=== PATIENT | male | born 1965 | race Caucasian/White ===

== ENCOUNTER → 2018-12-04 | Outpatient (REF) | payer MEDICARE ==
[2018-12-04 13:33] LABS: APPEARANCE, URINE CLEAR (CLEAR); BACTERIA, URINE AUTO NEGATIVE (NEGATIVE); BILIRUBIN, URINE AUTO NEGATIVE (NEGATIVE); BLOOD, URINE BLOOD 2+ (NEGATIVE); COLOR, URINE YELLOW (YELLOW); GLUCOSE, URINE (UA) AUTO NEGATIVE (NEGATIVE); KETONE, URINE AUTO NEGATIVE (NEGATIVE); LEUKOCYTE ESTERASE, URINE AUTO NEGATIVE (NEGATIVE); NITRITE, URINE AUTO NEGATIVE (NEGATIVE); PROTEIN, URINE AUTO NEGATIVE (NEGATIVE); RBC, URINE AUTO 14 /HPF (0-3); SPECIFIC GRAVITY URINE AUTO 1.016 (1.002-1.035); SQUAMOUS EPITHELIAL CELL UR AU 0 /HPF (0-6); UROBILINOGEN, URINE AUTO 0.2 mg/dL (0.0-2.0); WBC, URINE AUTO 0 /HPF (0-3)
[2018-12-04 14:10] LABS: ALBUMIN 3.4 GM/DL (3.2-5.2); BILIRUBIN,TOTAL 0.5 MG/DL (0.2-1.0); CALCIUM LEVEL 8.6 MG/DL (8.5-10.1); CREATININE FOR GFR 1.94 MG/DL (0.70-1.30); PHOSPHORUS LEVEL 3.2 MG/DL (2.5-4.9); POTASSIUM SERUM 4.7 MEQ/L (3.5-5.1); TOTAL PROTEIN 7.4 GM/DL (6.4-8.2)
[2018-12-04 14:16] LABS: TOTAL 25(OH) VITAMIN D 28.8 NG/ML (30.0-100.0)
[2018-12-04 14:17] LABS: FOLATE 15.1 NG/ML
[2018-12-07 00:07] LABS: % CD8 Pos Lymph 21.3 % (12.0-35.5); %CD4 Pos Lymphs 23.2 % (30.8-58.5); ABS Eosinophils 0.2 x10E3/uL (0.0-0.4); ABS Lymphs 0.8 x10E3/uL (0.7-3.1); ABS Monocytes 0.7 x10E3/uL (0.1-0.9); Abs CD4 Helper 186 /uL (359-1519); Abs CD8 Suppres 170 /uL (109-897); CD4/CD8 Ratio 1.09 (0.92-3.72); Eosinophils 2 % (Not Estab.); HCT 45.2 % (37.5-51.0); HEPATITIS A IgG TOTAL Positive (Negative); HEPATITIS B CORE ANTIBODY IGG Negative (Negative); HGB 15.3 g/dL (13.0-17.7); HIV-1 RNA PCR QUANT 2 LC550285 20 copies/mL (.); HIV-1 RNA PCR QUANT 3 LC550285 1.301 (.); Immature Grans 0 % (Not Estab.); Lymphocytes 11 % (Not Estab.); MCH 33.3 pg (26.6-33.0); MCHC 33.8 g/dL (31.5-35.7); MCV 98 fL (79-97); Monocytes 10 % (Not Estab.); Neutrophils 76 % (Not Estab.); Platelets 191 x10E3/uL (150-450); RDW 15.3 % (12.3-15.4); WBC 6.7 x10E3/uL (3.4-10.8)
== END ==
LOC: M SFHCPLAZ 11:08
PROVIDERS: ATTEND Internal Medicine Infectious Disease
DX: B20 Human immunodeficiency virus [HIV] disease (principal); E55.9 Vitamin D deficiency, unspecified; N18.3 Chronic kidney disease, stage 3 (moderate); Z23 Encounter for immunization
CPT/HCPCS: 36415; 80053; 81001; 82306; 82607; 82746; 84100; 86360; 86704; 86708; 87536; 90682; G0008; G0463

== ENCOUNTER → 2019-01-01 | Outpatient (CLI) | payer MEDICARE, OTHER ==
[~2019-01-01] MED LIST: B-1210009 PO; BUPR300T34 PO; BUSP10TA PO; GABA800T4; LISI-542 PO; QUET1TAB7 PO; SODI650T PO; STIO1AER PO; TRIU1TAB PO; VITA500045 PO
--- NOTE | 2019-01-02 08:36 | RADONC ---
RADIATION ONCOLOGY CONSULTATION NOTE DATE: 01/01/2019 CHART NUMBER: [id number] DIAGNOSIS: Anal cancer. STAGE: II A, T2N0M0. ECOG PERFORMANCE STATUS: 2 CONSULTATION NOTE: Mr. Vásquez is a truly pleasant and unfortunate 53-year-old white male with the diagnosis of what appears to be a stage II A, T2N0M0 anorectal squamous cell carcinoma, who is presenting to us today status post definitive external beam radiation therapy combined with chemotherapy for further followup visit and surveillance. HISTORY OF PRESENT ILLNESS: The patient was in his usual state of health until early May when he was found to have an anal lesion. A biopsy was done on 06/09/2017 and pathology revealed a squamous cell carcinoma. The tumor was staged as a stage II A, cT2, N0, M0 lesion. A PET scan was done on 07/12/2017 and confirmed no evidence of metastatic disease. The patient was treated with external beam radiation therapy for a dose of 5040 cGy delivered in 28 fractions over 37 elapsed days from 08/14/2017 through 09/21/2017. He had difficulty with tolerance of his treatment but overall has done well. The patient reports that he did have a post treatment PET scan in November 2017, which is reported to be negative and done at an outside institution. He reports that he has had pulmonary issues with pulmonary hypertension as well as kidney issues and cardiology issues and all this has been followed in [place]. I do not have all the reports at the present time. He is now presenting for discussion in routine followup of his anal cancer. PAST MEDICAL HISTORY: The patient's past medical history is positive for a diagnosis of HIV in 1992. He developed AIDS in 2011. He has now moved closer to be near his sister who lives in [facility]. In addition, the patient has a history of stage III chronic kidney disease, pulmonary fibrosis, chronic respiratory failure and hypoxia, depressive disorder, vitamin B12 deficiency, polyneuropathy, and sleep apnea. He has had shingles on multiple occasions and has had HPV virus and multiple skin cancers. SOCIAL HISTORY: The patient had smoked one pack of cigarettes per day for 25 years. He quit in 2010. He does not abuse alcohol. ALLERGIES: The patient has NO KNOWN DRUG ALLERGIES. FAMILY HISTORY: The patient's family history is positive for maternal grandfather with a brain tumor and a maternal grandmother with pancreatic cancer. REVIEW OF SYSTEMS: The patient's review of systems is positive for shortness of breath requiring nasal oxygen. He has physical limitations secondary to his oxygen dependency as well as depression and anxiety. He denies nausea, vomiting, fevers, chills, night sweats, diplopia, headaches, visual disturbances, weight loss, bowel difficulties, bone pain or neurological problems. PHYSICAL EXAMINATION: The patient is a well-developed, well-nourished white male, in no acute distress, who is on nasal oxygen. HEENT: Exam is normocephalic, atraumatic. Extraocular movements are intact. There is no palpable cervical, supraclavicular, infraclavicular, axillary or inguinal lymphadenopathy present. His lungs are clear to auscultation and percussion. His heart has a regular rate and rhythm. His abdomen is benign with no splenomegaly, masses or tenderness. Rectal examination reveals a normal anal sphincter tone. The perianal region shows no evidence of nodularity, ulceration or recurrent disease. The anal canal and rectal examination reveals no evidence of nodularity or ulceration. All is within normal limits. There are no significant skin changes secondary to radiation. Skeletal examination reveals no tenderness to percussion of the bony skeleton. Extremities: Reveal no cyanosis or edema. ASSESSMENT: At this time, the patient appears to be clinically RYLEE with his anal carcinoma. I have printed out a copy of the national comprehensive cancer network guidelines for surveillance of anal carcinoma, version 2.2019. It calls for those patients in complete remission following radiation and chemotherapy to undergo digital rectal examinations every 3-6 months for 5 years. In addition, inguinal node palpation should be done every 3-6 months for 5 years as well. On top of that anoscopy every 6-12 months for 3 years should be done and they have recommended scanning either with CT of the chest, abdomen and pelvis or an MRI annually for 3 years. In this case, the patient has been followed with pretreatment and post-treatment PET scans and for the sake of thoroughness and consistency I have ordered a PET scan to be undertaken instead of CAT scans. As noted above, I have scheduled the patient to see me again in 3 months. We will continue to follow him every 3 months and do routine digital and inguinal node examinations. I have also scheduled the patient for a PET CT scan. I was going to do this month but due to insurance purposes the patient asked if it would be possible to delay that scan until February. At this point, I do not see any difficulty with waiting another 6 weeks or so to do the PET CT scan, and I have introduced him to our nurse navigator to set that up. Once again, this will mean he will have his PET scan in the mid to early February and be seen by me the first week of March for followup. In addition, we are setting the patient up to be referred to Dr. Wiggins for routine anoscopy evaluation. The patient reports that he is being set up with our lpc for further evaluation and workup of his lung issues. He also is being set up for referral to a coloring room worker for his pulmonary hypertension and a wildlife control operator. He will continue of course is very close care with his infectious disease physician Dr. Domínguez. I reassured him of course that he is in excellent hands under her service. I am in the process of transitioning towards long-term at this time and will not be here on a full-time basis. I have however told the patient I will be sure to have his visit scheduled with me personally and I think that reassured him. Thank you once again for allowing us to participate in the care of this very pleasant gentleman. If I could be of any assistance, please feel free to contact me at anytime. As always with the warmest regards.
== END ==
LOC: M ONCR 08:37
PROVIDERS: ATTEND Radiology Radiation Oncology
DX: C21.0 Malignant neoplasm of anus, unspecified (principal); B20 Human immunodeficiency virus [HIV] disease; N18.3 Chronic kidney disease, stage 3 (moderate); J84.10 Pulmonary fibrosis, unspecified; J96.11 Chronic respiratory failure with hypoxia; F33.9 Major depressive disorder, recurrent, unspecified; D51.9 Vitamin B12 deficiency anemia, unspecified; G62.9 Polyneuropathy, unspecified; G47.30 Sleep apnea, unspecified; Z86.19 Personal history of other infectious and parasitic diseases; Z85.828 Personal history of other malignant neoplasm of skin; Z87.891 Personal history of nicotine dependence; Z80.9 Family history of malignant neoplasm, unspecified; Z80.0 Family history of malignant neoplasm of digestive organs

== ENCOUNTER → 2019-03-07 | Outpatient (REF) | payer MEDICARE ==
[~2019-03-07] MED LIST changes: -BUPR300T34 PO; +BUPR300T92 PO
[2019-03-07 14:22] LABS: ALBUMIN 3.8 GM/DL (3.2-5.2); BILIRUBIN,TOTAL 0.7 MG/DL (0.2-1.0); CALCIUM LEVEL 8.9 MG/DL (8.5-10.1); CREATININE FOR GFR 2.11 MG/DL (0.70-1.30); GLOMERULAR FILTRATION RATE 35.4 (>56); POTASSIUM SERUM 4.8 MEQ/L (3.5-5.1)
[2019-03-07 14:29] LABS: TOTAL 25(OH) VITAMIN D 26.5 NG/ML (30.0-100.0)
[2019-03-07 15:16] LABS: FOLATE 12.6 NG/ML
[2019-03-12 00:07] LABS: % CD8 Pos Lymph 20.7 % (12.0-35.5); %CD4 Pos Lymphs 20.9 % (30.8-58.5); ABS Eosinophils 0.1 x10E3/uL (0.0-0.4); ABS Monocytes 0.9 x10E3/uL (0.1-0.9); ABS Neutophils 5.8 x10E3/uL (1.4-7.0); Abs CD4 Helper 209 /uL (359-1519); Abs CD8 Suppres 207 /uL (109-897); CD4/CD8 Ratio 1.01 (0.92-3.72); Eosinophils 1 % (Not Estab.); HCT 46.7 % (37.5-51.0); HGB 16.4 g/dL (13.0-17.7); HIV-1 RNA PCR QUANT 2 LC550285 <20 copies/mL (.); Immature Grans 0 % (Not Estab.); Lymphocytes 13 % (Not Estab.); MCH 34.5 pg (26.6-33.0); MCHC 35.1 g/dL (31.5-35.7); MCV 98 fL (79-97); Monocytes 11 % (Not Estab.); Neutrophils 74 % (Not Estab.); Platelets 242 x10E3/uL (150-450); RBC 4.75 x10E6/uL (4.14-5.80); RDW 15.6 % (11.6-15.4); WBC 7.8 x10E3/uL (3.4-10.8)
== END ==
LOC: M SFHCPLAZ 11:33
PROVIDERS: ATTEND Internal Medicine Infectious Disease
DX: B20 Human immunodeficiency virus [HIV] disease (principal); G63 Polyneuropathy in diseases classified elsewhere; C21.0 Malignant neoplasm of anus, unspecified; E55.9 Vitamin D deficiency, unspecified
CPT/HCPCS: 36415; 80053; 82306; 82378; 82607; 82746; 86360; 87536; G0463

== ENCOUNTER → 2019-03-13 | Outpatient (CLI) | payer MEDICARE ==
--- NOTE | 2019-03-13 13:44 | REP ---
CHEST X-RAY: TWO VIEWS. HISTORY: Pulmonary fibrosis. Comparison is made with images from PET-CT study dated November 23, 2017. FINDINGS: There is a subtle infiltrate pattern in the right upper lobe and the right upper perihilar region. Some increased markings are noted in the right perihilar region on chest CT. Some of this may be chronic. Lung carroll are otherwise clear. Pleural angles are sharp. Heart is not enlarged. Pulmonary vasculature is not increased. No significant bony abnormality. IMPRESSION: Right upper lobe infiltrate pattern. Question chronic. It is difficult to compare with the prior CT findings. Followup is suggested. Electronically Signed by Minh Arango MD 03/13/2019 07:04 P
== END ==
LOC: M RAD 12:51
PROVIDERS: ATTEND Nurse Practitioner Family
DX: J84.10 Pulmonary fibrosis, unspecified (principal)

== ENCOUNTER → 2019-03-19 | Outpatient (CLI) | payer MEDICARE ==
--- NOTE | 2019-03-20 15:38 | REP ---
Whole body PET CT scan for restaging of anal carcinoma: Comparison is an outside study dated 11/23/2017. On the comparison study there were no hypermetabolic foci in the rectosigmoid colon or anus. Whole-body scanning is performed from skull base to the upper thighs. Neck and supraclavicular areas: There are no hypermetabolic foci. This is unchanged. Chest: There are no hypermetabolic foci. This is unchanged. Abdomen, pelvis and upper thighs: There is a hypermetabolic focus in the distal rectosigmoid colon above the anus measuring approximate 2 cm in diameter with a maximal standard uptake value of 6.6 as a change from the prior study. There is a hypermetabolic focus in the anus measuring 1.1 cm diameter with a maximal standard uptake value of 5.8, also a change from the prior study. Additionally, there is uptake along the medial margins of the ischii bilaterally, not present previously. This is nonspecific but may be related to tendinopathy. There are no hypermetabolic foci in the abdomen, pelvis or upper thighs otherwise. Impression: There are two new hypermetabolic foci, one in the distal rectosigmoid colon above the anus and the other in the anus as discussed in the body of the report. Additionally, there is uptake along the medial margins of the ischii of uncertain significance, possibly tendinopathy. The study is performed with 8.14 mCi of F 18 FDG. Electronically Signed by Ian Dickey MD 03/20/2019 03:30 P
== END ==
LOC: M PLARAD 10:45
PROVIDERS: ATTEND Radiology Radiation Oncology
DX: R93.3 Abnormal findings on diagnostic imaging of other parts of digestive tract (principal); C21.0 Malignant neoplasm of anus, unspecified
CPT/HCPCS: 78815; A9552

== ENCOUNTER → 2019-03-25 | Outpatient (CLI) | payer MEDICARE ==
--- NOTE | 2019-03-26 16:25 | SLEEPCENT ---
DATE OF PROCEDURE: 03/25/2019 ORDERED BY: DANYELLE Dobson Nocturnal polysomnography was performed for the titration of pressure therapy in this patient with a clinical diagnosis of obstructive sleep apnea syndrome supported by home testing revealing respiratory event index 16.5. For testing a ResMed AirFit F20 full-face mask of medium size was used; 4 cm of water pressure were initially applied to the circuit and the lights were extinguished. 7 hours and 36 minutes of data were reviewed. There were 344.5 minutes of sleep identified. Sleep latency was prolonged at 41 minutes. Rapid eye movement (REM) latency was mildly prolonged at 115.5 minutes. Sleep architecture was good with 3 REM cycles noted. Overall sleep efficiency 76.6%. The patient's electrocardiogram showed a sinus rhythm, average heart rate 85 beats per minute. Electroencephalogram (EEG) showed fairly normal waveforms for awake and sleep stages. Respiratory events were reasonably palliated with CPAP at a pressure of 12. Further increases prompted the emergence of central apneas. There were some mild hypopneic events but no significant oxygen desaturations with them. Some activity was also noted in the limb leads but limb movement arousal index was 5.2. IMPRESSION: Obstructive sleep apnea syndrome (G47.33). RECOMMENDATIONS: Nightly use of pressure therapy 12 cm of water.
== END ==
LOC: M SLEEP 19:08
PROVIDERS: ATTEND Nurse Practitioner Family
DX: G47.33 Obstructive sleep apnea (adult) (pediatric) (principal)

== ENCOUNTER → 2019-03-27 | Outpatient (CLI) | payer MEDICARE, OTHER ==
--- NOTE | 2019-03-27 14:28 | RADONC ---
RADIATION ONCOLOGY FOLLOWUP NOTE DATE: 03/27/2019 CHART #: [id number] DIAGNOSIS: Anal cancer. STAGE: II A, T2N0M0. ECOG PERFORMANCE STATUS: 2. FOLLOWUP NOTE: Mr. Vásquez is a pleasant 53-year-old white male with the diagnosis of what appears to be a stage II A, T2N0M0, anorectal squamous cell carcinoma who is presenting to us today for a followup visit status post definitive external beam radiation therapy combined with chemotherapy at an outside institution in 2018. The patient presents today reporting that he is doing well with regards to his anal cancer. He has multiple other medical illnesses; however, which are being managed by other physicians. REVIEW OF SYSTEMS: The patient's review of systems continues to be positive for physical limitations as well as shortness of breath requiring nasal oxygen. He has weakness. He denies nausea, vomiting, fevers, chills, night sweats, headaches anal pain, blood in the stools, or blood in the urine. PHYSICAL EXAMINATION: The patient is a chronically ill-appearing white male who is presenting on nasal oxygen. HEENT Exam: Normocephalic, atraumatic. Extraocular movements are intact. There is no palpable cervical, supraclavicular, infraclavicular, axillary or inguinal lymphadenopathy present. His lungs are generally clear to auscultation and percussion. His heart has a regular rate and rhythm. Rectal examination reveals no evidence of nodularity, ulceration or recurrent disease. The patient is clinically doing quite well at this point. Since his past visit, he has had a PET scan done on 03/19/2019 which showed some hypermetabolic uptake in the perianal muscles which is symmetrical. There was also some uptake along the anal wall. The patient, however, has been seen by Dr. Whitmore of [facility] and undergone anoscopy. He saw some scarring secondary to the radiation, but no evidence of disease. He is continuing his close followup with Dr. Whitmore every 3 months. In addition, he is following up with his other physicians as well. In light of his close followup and management through his other physicians, I have discharged him from my followup except on a p.r.n. basis. At this point, almost 2 years following radiation, his primary followup should be through his colorectal physician which is doing every three months and colonoscopies as indicated. cc: MD Ning Shaw Bem, MD Leno Thomas, MD
== END ==
LOC: M ONCR 10:33
PROVIDERS: ATTEND Radiology Radiation Oncology
DX: C21.0 Malignant neoplasm of anus, unspecified (principal)

== ENCOUNTER → 2019-09-02 | Outpatient (CLI) | payer MEDICARE, OTHER ==
[~2019-09-02] MED LIST changes: +SERO50TA PO
[2019-09-02 12:40] LABS: ALBUMIN 3.5 GM/DL (3.2-5.2); BILIRUBIN,TOTAL 0.4 MG/DL (0.2-1.0); CALCIUM LEVEL 8.3 MG/DL (8.5-10.1); CREATININE FOR GFR 1.96 MG/DL (0.70-1.30); GLOMERULAR FILTRATION RATE 38.6 (>56); POTASSIUM SERUM 4.8 MEQ/L (3.5-5.1); TOTAL PROTEIN 7.4 GM/DL (6.4-8.2)
[2019-09-05 18:09] LABS: % CD8 Pos Lymph 21.5 % (12.0-35.5); %CD4 Pos Lymphs 24.5 % (30.8-58.5); ABS Basophils 0.1 x10E3/uL (0.0-0.2); ABS Eosinophils 0.1 x10E3/uL (0.0-0.4); ABS Monocytes 0.7 x10E3/uL (0.1-0.9); ABS Neutophils 4.9 x10E3/uL (1.4-7.0); Abs CD4 Helper 245 /uL (359-1519); Abs CD8 Suppres 215 /uL (109-897); CD4/CD8 Ratio 1.14 (0.92-3.72); Eosinophils 2 % (Not Estab.); HCT 47.1 % (37.5-51.0); HGB 15.9 g/dL (13.0-17.7); HIV-1 RNA PCR QUANT 2 LC550285 <20 copies/mL (.); Immature Grans 0 % (Not Estab.); Lymphocytes 15 % (Not Estab.); MCH 33.6 pg (26.6-33.0); MCHC 33.8 g/dL (31.5-35.7); MCV 100 fL (79-97); Monocytes 11 % (Not Estab.); Neutrophils 71 % (Not Estab.); Platelets 219 x10E3/uL (150-450); RBC 4.73 x10E6/uL (4.14-5.80); RDW 14.4 % (11.6-15.4); WBC 6.8 x10E3/uL (3.4-10.8)
== END ==
LOC: M PLALAB 10:15
PROVIDERS: ATTEND Internal Medicine Infectious Disease
DX: B20 Human immunodeficiency virus [HIV] disease (principal)

== ENCOUNTER → 2019-12-10 | Outpatient (CLI) | payer MEDICARE, OTHER ==
--- NOTE | 2019-12-12 12:34 | ECHO ---
DATE OF PROCEDURE: 12/10/2019 Age: 54 Gender: Male Height: 70 inches Weight: 280 pounds Body surface area: 2.4 m2 PATIENT LOCATION: Outpatient. REFERRING PHYSICIAN: Nnig Domínguez MD. INDICATION: Respiratory failure. MEASUREMENTS: 2D Measurements: RV 4.0 cm LV 3.7 cm Septum 1.2 cm Posterior wall 1.2 cm Aortic Root 3.7 cm LA 4.0 cm LVEF 75% Doppler Measurements: AV 1.0 m/s LVOT 0.95 m/s MV-E 68, A 89, E/A ratio 0.8 Early mitral deceleration time 161 m/s E prime medial 6, A prime medial 12.9, E prime lateral 7.6 Average E/E prime ratio 10/PCWP 14.3 mmHg PV 0.7 m/s Pulmonary artery acceleration time 90 m/s PASP 42 mmHg COMMENTS: Sinus tachycardia with left bundle branch block. Technically difficult study in light of the patients body habitus, but diagnostically useful information was still obtained. M-mode and two-dimensional echocardiography was performed with pulse, continuous wave, color flow, and tissue Doppler studies. Borderline concentric left ventricular hypertrophy with hyperkinetic wall motion. Borderline left atrial enlargement with grade 1 left ventricular (LV) diastolic dysfunction with current estimated mean left atrial pressure upper limits of normal. Borderline dilated right heart chambers with normal wall motion and Doppler evidence of at least moderate pulmonary hypertension. We could not visualize his inferior vena cava to further estimate his central venous pressure. Normal aortic dimensions. Normal appearing aortic valve and aortic valve function. Mild degenerative changes of the mitral valvular apparatus without apparent functional abnormality. Normal appearing tricuspid valve with mild insufficiency. We could not visualize any intracardiac mass. No pericardial effusion. MTDD
== END ==
LOC: M CARPUL 10:14
PROVIDERS: ATTEND Internal Medicine Infectious Disease
DX: J96.11 Chronic respiratory failure with hypoxia (principal); I44.7 Left bundle-branch block, unspecified

== ENCOUNTER → 2019-12-18 | Outpatient (REF) | payer MEDICARE ==
[2019-12-18 14:10] LABS: CREATININE FOR GFR 1.94 MG/DL (0.70-1.30); GLOMERULAR FILTRATION RATE 38.9 (>56)
[2019-12-18 14:11] LABS: CALCIUM LEVEL 9.7 MG/DL (8.5-10.1)
[2019-12-18 14:19] LABS: HEMOGLOBIN A1c 7.1 %
== END ==
LOC: M SFHCPLAZ 10:09
PROVIDERS: ATTEND Internal Medicine Infectious Disease
DX: R73.9 Hyperglycemia, unspecified (principal)

== ENCOUNTER → 2020-05-06 | Outpatient (CLI) | payer MEDICARE ==
[~2020-05-06] MED LIST changes: +GASTROGRAFIN SOLUTION 30ML (Q9963) As Ordered ONE; -LISI-542 PO; +LISI-898 PO; -QUET1TAB7 PO; +QUET25TA3 PO
--- NOTE | 2020-05-06 13:55 | REP ---
INDICATION: ANAL CA SURVEILLENCE. COMPARISON: None. TECHNIQUE: CT of the chest without IV contrast. FINDINGS: There are no lung nodules or masses. There are no infiltrates or pleural effusions. There are focal areas of subpleural scarring. There is no mediastinal or axillary lymph node enlargement. The study is insensitive for hilar lymph node enlargement in the absence of IV contrast. However, there appear to be calcifications in the left hilus, likely granulomas. The unenhanced thoracic aorta is unremarkable. Cardiac size is normal. There is no pericardial effusion. Upper abdomen: I suspect there are calculi in the gallbladder neck. There is no gallbladder distention, wall thickening or pericholecystic fluid. The visualized areas of the unenhanced liver, pancreas and spleen are unremarkable except for hepato steatosis.. There is no adrenal mass. IMPRESSION: There are no lung masses or nodules. There are no infiltrates or pleural effusions. There are focal areas of subpleural scarring. Cholelithiasis without evidence of acute cholecystitis. Hepato steatosis. <Electronically signed by Ian Dickey > 05/06/20 [id number]
--- NOTE | 2020-05-06 14:24 | REP ---
INDICATION: ANAL CA SURVEILLENCE. Status post chemotherapy and radiation therapy. COMPARISON: Comparison PET-CT study 19 March 2019.. TECHNIQUE: Helical scanning is acquired and 3 mm axial images re-formatted. Coronal and sagittal MPR images are generated. FINDINGS: Preliminary digital fabrication machine operator radiograph shows an unremarkable bowel gas pattern. There is mild to moderate diffuse fatty infiltration of the liver. The liver is not felt to be enlarged overall. The spleen is normal in size homogeneous in texture. No hepatic or splenic mass lesion is seen. There is a peripherally calcified gallstone in the neck of the gallbladder. No abnormality is noted in the pancreas. Normal adrenal glands are seen bilaterally. There is no evidence of retroperitoneal adenopathy or mass lesion. The kidneys are morphologically intact. Small and large bowel loops are normal in the upper abdomen. Pelvic CT images show dystrophic calcifications in the prostate. Seminal vesicles and urinary bladder are unremarkable. No perineal or perirectal mass or adenopathy is appreciated. Small and large bowel loops are normal in the pelvis. No abdominal wall defect is seen. Bone window settings show bilateral pars defects at L5 without spondylolisthesis. No bony destructive lesion is seen. IMPRESSION: No mass or adenopathy noted. Fatty infiltration of the liver. Cholelithiasis. <Electronically signed by Reynaldo Arango > 05/06/20 [id number]
== END ==
LOC: M RAD 11:03
PROVIDERS: ATTEND Internal Medicine Medical Oncology
DX: C21.0 Malignant neoplasm of anus, unspecified (principal); K76.0 Fatty (change of) liver, not elsewhere classified; K80.20 Calculus of gallbladder without cholecystitis without obstruction
CPT/HCPCS: 71250; 74176; Q9963

== ENCOUNTER → 2020-05-10 | Outpatient (CLI) | payer MEDICARE ==
[~2020-05-10] MED LIST changes: +D31000TA2 PO; -GASTROGRAFIN SOLUTION 30ML (Q9963) As Ordered ONE; +QUET50TA3
== END ==
LOC: M LABSMTC 09:09
PROVIDERS: ATTEND Anesthesiology
DX: Z01.818 Encounter for other preprocedural examination (principal); Z11.52 Encounter for screening for COVID-19

== ENCOUNTER 2020-05-15 06:45 | Day surgery (SDC) | payer MEDICARE ==
[~2020-05-15] VITALS: Ht 180.3 cm; Wt 123.8 kg
[~2020-05-15 06:45] MED LIST changes: +NS 1,000 ML IV ONE
[2020-05-15] MEDS ORDERED: LIDOCAINE 2% 100MG/5ML SDV (FOR ANES.) As Ordered ONE (07:03)
[2020-05-15] MEDS ORDERED: propofoL 200 MG/20 ML VIAL As Ordered ONE (07:03)
--- NOTE | 2020-05-15 08:11 | ROOR ---
Patient Name: Ramón Vásquez Procedure Date: 05/15/2020 7:28 AM Date of : 1965 Age: 54 Room: [facility] Gender: Male Note Status: Finalized Procedure: Colonoscopy Indications: Abnormal PET scan of the GI tract Providers: Cesario WIGGINS MD Referring MD: Ning CUMMINGS MD., Lakshmi AUGUSTIN MD Requesting Provider: Medicines: Monitored Anesthesia Care Complications: No immediate complications. Procedure: Pre-Anesthesia Assessment: - The heart rate, respiratory rate, oxygen saturations, blood pressure, adequacy of pulmonary ventilation, and response to care were monitored throughout the procedure. The Colonoscope was introduced through the anus and advanced to 10 cm into the ileum. The colonoscopy was performed without difficulty. The patient tolerated the procedure well. The quality of the bowel preparation was good. Findings: The perianal and digital rectal examinations were normal. The perianal and digital examinations were normal. Pertinent negatives include normal sphincter tone and no palpable rectal lesions. Mild mucosal changes characterized by altered vascularity and congestion (edema) were found at the anus, in the rectum and in the recto-sigmoid colon. Biopsies were taken with a cold forceps for histology. A 5 mm polyp was found in the splenic flexure. The polyp was sessile. The polyp was removed with a cold snare. Resection and retrieval were complete. Retroflexion in the right colon was performed. The exam was otherwise normal throughout the examined colon. The terminal ileum appeared normal. 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 In view of PET scan results this area was randomly biopsied. - One 5 mm polyp at the splenic flexure, removed with a cold snare. Resected and retrieved. - The rest of the colon and examined portion of the ileum are normal. Recommendation: - Await pathology results. - Use fiber, for example Citrucel, Fibercon, Konsyl or Metamucil. - Repeat proctoscopy/flex sig in 1 year to assess disease activity. Procedure Code(s): --- Professional --- 18833, Colonoscopy, flexible; with removal of tumor(s), polyp(s), or other lesion(s) by snare technique 90246, 59, Colonoscopy, flexible; with biopsy, single or multiple Diagnosis Code(s): --- Professional --- R93.3, Abnormal findings on diagnostic imaging of other parts of digestive tract K63.5, Polyp of colon K62.7, Radiation proctitis K52.0, Gastroenteritis and colitis due to radiation CPT copyright 2019 [employer] [place] [employer]. All rights reserved. The codes documented in this report are preliminary and upon pigskin trimmer review may be revised to meet current compliance requirements. Cesario Wiggins MD Cesario WIGGINS MD 05/15/2020 8:11:07 AM Electronically signed by Cesario WIGGINS MD Number of Addenda: 0 Note Initiated On: 05/15/2020 7:28 AM Estimated Blood Loss: Estimated blood loss: none.
[2020-05-15 08:25] VITALS: BP 105/60
== END 2020-05-15 12:16 | disposition home or self-care (01) ==
LOC: M OPP 06:45
PROVIDERS: ATTEND Internal Medicine Gastroenterology
DX: K52.0 Gastroenteritis and colitis due to radiation (principal); K62.3 Rectal prolapse; K62.1 Rectal polyp; D12.5 Benign neoplasm of sigmoid colon; D12.3 Benign neoplasm of transverse colon; R93.3 Abnormal findings on diagnostic imaging of other parts of digestive tract; J84.10 Pulmonary fibrosis, unspecified; Z79.899 Other long term (current) drug therapy; Z85.048 Personal history of other malignant neoplasm of rectum, rectosigmoid junction, and anus; Z92.21 Personal history of antineoplastic chemotherapy; Z92.3 Personal history of irradiation

== ENCOUNTER → 2020-06-11 | Outpatient (REF) | payer MEDICARE ==
[~2020-06-11] MED LIST changes: -NS 1,000 ML IV ONE
[2020-06-11 15:59] LABS: HEMOGLOBIN A1c 6.2 %
[2020-06-11 16:07] LABS: CHOLESTEROL RISK RATIO 6.034 (<5)
[2020-06-11 16:51] LABS: TOTAL 25(OH) VITAMIN D 14.1 NG/ML (30.0-100.0)
[2020-06-14 01:06] LABS: %CD4 Pos Lymphs 27.1 % (30.8-58.5); ABS Basophils 0.1 x10E3/uL (0.0-0.2); ABS Eosinophils 0.1 x10E3/uL (0.0-0.4); ABS Lymphs 0.9 x10E3/uL (0.7-3.1); ABS Monocytes 0.5 x10E3/uL (0.1-0.9); ABS Neutophils 5.3 x10E3/uL (1.4-7.0); Abs CD4 Helper 244 /uL (359-1519); Abs CD8 Suppres 225 /uL (109-897); CD4/CD8 Ratio 1.08 (0.92-3.72); Eosinophils 2 % (Not Estab.); HCT 52.1 % (37.5-51.0); HGB 17.3 g/dL (13.0-17.7); HIV-1 RNA PCR QUANT 2 LC550285 <20 copies/mL (.); Immature Grans 0 % (Not Estab.); Lymphocytes 14 % (Not Estab.); MCHC 33.2 g/dL (31.5-35.7); MCV 99 fL (79-97); Monocytes 8 % (Not Estab.); Neutrophils 75 % (Not Estab.); Platelets 241 x10E3/uL (150-450); RBC 5.24 x10E6/uL (4.14-5.80); RDW 14.6 % (11.6-15.4); WBC 6.9 x10E3/uL (3.4-10.8)
== END ==
LOC: M SFHCPLAZ 14:07
PROVIDERS: ATTEND Internal Medicine Infectious Disease
DX: B20 Human immunodeficiency virus [HIV] disease (principal); E55.9 Vitamin D deficiency, unspecified; E11.9 Type 2 diabetes mellitus without complications
CPT/HCPCS: 36415; 80061; 82306; 83036; 86360; 87536; G0463

== ENCOUNTER → 2020-12-14 | Outpatient (CLI) | payer MEDICARE ==
[~2020-12-14] MED LIST changes: +ERGO500029 PO; +QUET1TAB17 PO; -QUET25TA3 PO; -QUET50TA3; +QUET50TA4
[2020-12-14 15:32] LABS: CHOLESTEROL RISK RATIO 6.1 (<5)
[2020-12-14 15:41] LABS: TOTAL 25(OH) VITAMIN D 37.8 NG/ML (30.0-100.0)
[2020-12-14 20:56] LABS: HEMOGLOBIN A1c 6.7 %
[2020-12-17 03:07] LABS: % CD8 Pos Lymph 26.7 % (12.0-35.5); %CD4 Pos Lymphs 26.6 % (30.8-58.5); ABS Basophils 0.1 x10E3/uL (0.0-0.2); ABS Eosinophils 0.1 x10E3/uL (0.0-0.4); ABS Lymphs 1.1 x10E3/uL (0.7-3.1); ABS Monocytes 0.9 x10E3/uL (0.1-0.9); ABS Neutophils 6.4 x10E3/uL (1.4-7.0); Abs CD4 Helper 293 /uL (359-1519); Abs CD8 Suppres 294 /uL (109-897); Eosinophils 2 % (Not Estab.); HCT 49.8 % (37.5-51.0); HGB 17.4 g/dL (13.0-17.7); HIV-1 RNA PCR QUANT 2 LC550285 <20 copies/mL (.); Immature Grans 0 % (Not Estab.); Lymphocytes 12 % (Not Estab.); MCH 34.3 pg (26.6-33.0); MCHC 34.9 g/dL (31.5-35.7); MCV 98 fL (79-97); Monocytes 10 % (Not Estab.); Neutrophils 75 % (Not Estab.); Platelets 229 x10E3/uL (150-450); RBC 5.07 x10E6/uL (4.14-5.80); WBC 8.5 x10E3/uL (3.4-10.8)
== END ==
LOC: M PLALAB 11:43
PROVIDERS: ATTEND Internal Medicine Infectious Disease
DX: E55.9 Vitamin D deficiency, unspecified (principal); B20 Human immunodeficiency virus [HIV] disease; E11.9 Type 2 diabetes mellitus without complications
CPT/HCPCS: 36415; 80061; 82306; 83036; 86360; 87536; G0463

== ENCOUNTER → 2020-12-29 | Outpatient (REF) | payer MEDICARE | LOC: M LAB REF 17:04 | PROVIDERS: ATTEND Nurse Practitioner Family | DX: N18.32 Chronic kidney disease, stage 3b (principal) ==

== ENCOUNTER → 2021-03-10 | Outpatient (CLI) | payer MEDICARE ==
[~2021-03-10] MED LIST changes: -LISI-898 PO; +LISI5TAB11 PO
[2021-03-10 15:52] LABS: CALCIUM LEVEL 9.5 MG/DL (8.5-10.1); CHOLESTEROL RISK RATIO 6.444 (<5); CREATININE FOR GFR 1.88 MG/DL (0.70-1.30); GLOMERULAR FILTRATION RATE 40.2 (>56); POTASSIUM SERUM 4.7 MEQ/L (3.5-5.1)
[2021-03-10 16:28] LABS: HEMOGLOBIN A1c 7.2 %
== END ==
LOC: M PLALAB 14:06
PROVIDERS: ATTEND Internal Medicine Infectious Disease
DX: B20 Human immunodeficiency virus [HIV] disease (principal); E11.9 Type 2 diabetes mellitus without complications

== ENCOUNTER → 2021-05-04 | Outpatient (CLI) | payer MEDICARE ==
[~2021-05-04] MED LIST changes: -D31000TA2 PO; +GASTROGRAFIN SOLUTION 30ML (Q9963) As Ordered ONE; +METF500T13 PO; +VITA100093 PO
== END ==
LOC: M RAD 12:31
PROVIDERS: ATTEND Internal Medicine Medical Oncology
DX: Z85.048 Personal history of other malignant neoplasm of rectum, rectosigmoid junction, and anus (principal); K76.0 Fatty (change of) liver, not elsewhere classified; K80.20 Calculus of gallbladder without cholecystitis without obstruction; E27.9 Disorder of adrenal gland, unspecified
CPT/HCPCS: 71250; 74176; Q9963

== ENCOUNTER → 2021-06-08 | Outpatient (CLI) | payer MEDICARE ==
[~2021-06-08] MED LIST changes: -GASTROGRAFIN SOLUTION 30ML (Q9963) As Ordered ONE
== END ==
LOC: M CARPUL 09:11
PROVIDERS: ATTEND Internal Medicine Pulmonary Disease
DX: I27.20 Pulmonary hypertension, unspecified (principal); R07.9 Chest pain, unspecified; R93.9 Diagnostic imaging inconclusive due to excess body fat of patient

== ENCOUNTER → 2021-06-24 | Outpatient (CLI) | payer MEDICARE ==
[2021-06-24 19:02] LABS: BASO # 0.1 10^3/uL (0.0-0.2); BASO % 0.9 % (0.0-1.0); EOS # 0.1 10^3/uL (0.0-0.5); EOS % 1.5 % (0.0-3.0); HEMATOCRIT 51.3 % (42.0-52.0); HEMOGLOBIN 16.7 g/dl (13.5-17.5); LYMPH # 1.2 10^3/uL (1.5-5.0); LYMPH % 14.5 % (24.0-44.0); MEAN CORPUSCULAR HEMOGLOBIN 33.9 pg (27.0-33.0); MEAN CORPUSCULAR HGB CONC 32.6 g/dl (32.0-36.5); MEAN CORPUSCULAR VOLUME 104.1 fl (80.0-96.0); MONO # 0.7 10^3/uL (0.0-0.8); MONO % 8.4 % (2.0-8.0); NEUTROPHILS % 74.3 % (36.0-66.0); PLATELET COUNT, AUTOMATED 255 10^3/uL (150-450); RED BLOOD COUNT 4.93 10^6/uL (4.30-6.10); WHITE BLOOD COUNT 8.1 10^3/uL (4.0-10.0)
[2021-06-24 19:22] LABS: ALBUMIN 3.4 GM/DL (3.2-5.2); BILIRUBIN,TOTAL 0.5 MG/DL (0.2-1.0); CALCIUM LEVEL 9.3 MG/DL (8.5-10.1); CHOLESTEROL RISK RATIO 5.851 (<5); CREATININE FOR GFR 2.06 MG/DL (0.70-1.30); FREE T4 0.89 NG/DL (0.76-1.46); GLOMERULAR FILTRATION RATE 36.1 (>56); POTASSIUM SERUM 5.1 MEQ/L (3.5-5.1); THYROID STIMULATING HORMONE 3.63 uIU/ML (0.358-3.740); TOTAL 25(OH) VITAMIN D 50.9 NG/ML (30.0-100.0); TOTAL PROTEIN 7.1 GM/DL (6.4-8.2)
[2021-06-24 19:29] LABS: CREATININE, URINE 84.3 MG/DL; MALB URINE SIEMENS 59.3 MG/L; MAU/CREAT RATIO 70.3 MCG/MG (0.0-30.0)
[2021-06-24 21:33] LABS: HEMOGLOBIN A1c 6.1 %
== END ==
LOC: M PLALAB 14:37
PROVIDERS: ATTEND Physician Assistant
DX: N18.30 Chronic kidney disease, stage 3 unspecified (principal); E11.9 Type 2 diabetes mellitus without complications; E55.9 Vitamin D deficiency, unspecified; E78.00 Pure hypercholesterolemia, unspecified

== ENCOUNTER → 2021-06-24 | Outpatient (CLI) | payer MEDICARE ==
[2021-06-24 19:11] LABS: ALBUMIN 3.3 GM/DL (3.2-5.2); BILIRUBIN,DIRECT 0.2 MG/DL (0.0-0.2); BILIRUBIN,TOTAL 0.5 MG/DL (0.2-1.0); TOTAL PROTEIN 7.2 GM/DL (6.4-8.2)
== END ==
LOC: M PLALAB 14:41
DX: J84.9 Interstitial pulmonary disease, unspecified (principal)

== ENCOUNTER → 2021-08-24 | Outpatient (CLI) | payer MEDICARE ==
[2021-08-24 18:41] LABS: ALBUMIN 3.4 GM/DL (3.2-5.2); BILIRUBIN,TOTAL 0.6 MG/DL (0.2-1.0); CALCIUM LEVEL 8.7 MG/DL (8.5-10.1); CREATININE FOR GFR 1.85 MG/DL (0.70-1.30); GLOMERULAR FILTRATION RATE 40.9 (>56); POTASSIUM SERUM 4.7 MEQ/L (3.5-5.1); TOTAL PROTEIN 7.1 GM/DL (6.4-8.2)
[2021-08-27 05:09] LABS: % CD8 Pos Lymph 28.6 % (12.0-35.5); %CD4 Pos Lymphs 34.8 % (30.8-58.5); ABS Basophils 0.1 x10E3/uL (0.0-0.2); ABS Eosinophils 0.1 x10E3/uL (0.0-0.4); ABS Lymphs 1.3 x10E3/uL (0.7-3.1); ABS Monocytes 0.6 x10E3/uL (0.1-0.9); Abs CD4 Helper 452 /uL (359-1519); Abs CD8 Suppres 372 /uL (109-897); CD4/CD8 Ratio 1.22 (0.92-3.72); Eosinophils 2 % (Not Estab.); HCT 50.9 % (37.5-51.0); HGB 17.3 g/dL (13.0-17.7); HIV-1 RNA PCR QUANT 2 LC550285 <20 copies/mL (.); Immature Grans 0 % (Not Estab.); Lymphocytes 15 % (Not Estab.); MCH 34.3 pg (26.6-33.0); MCV 101 fL (79-97); Monocytes 8 % (Not Estab.); Neutrophils 74 % (Not Estab.); Platelets 213 x10E3/uL (150-450); RBC 5.05 x10E6/uL (4.14-5.80); RDW 15.2 % (11.6-15.4); WBC 8.1 x10E3/uL (3.4-10.8)
== END ==
LOC: M PLALAB 14:11
PROVIDERS: ATTEND Internal Medicine Infectious Disease
DX: B20 Human immunodeficiency virus [HIV] disease (principal)

== ENCOUNTER → 2021-12-23 | Outpatient (CLI) | payer MEDICARE ==
[~2021-12-23] MED LIST changes: +ALBU8.5H; +OFEV1CAP2; +SODI325T9 PO; +TYVA0.6S3; +oxygen
== END ==
LOC: M RAD 11:04
PROVIDERS: ATTEND Internal Medicine Pulmonary Disease
DX: J96.10 Chronic respiratory failure, unspecified whether with hypoxia or hypercapnia (principal); R91.8 Other nonspecific abnormal finding of lung field

== ENCOUNTER → 2021-12-23 | Outpatient (CLI) | payer MEDICARE | LOC: M LABSMTC 09:53 | PROVIDERS: ATTEND Anesthesiology | DX: Z01.812 Encounter for preprocedural laboratory examination (principal); Z20.822 Contact with and (suspected) exposure to COVID-19 ==

== ENCOUNTER 2021-12-28 06:38 | Day surgery (SDC) | payer MEDICARE ==
[~2021-12-28] VITALS: Ht 180.3 cm; Wt 117.5 kg
[~2021-12-28 06:38] MED LIST changes: +NS 1,000 ML IV ONE; -SODI325T9 PO
[2021-12-28] MEDS ORDERED: LIDOCAINE 2% 100MG/5ML SDV (FOR ANES.) As Ordered ONE (07:29)
[2021-12-28] MEDS ORDERED: propofoL 200 MG/20 ML VIAL As Ordered ONE (07:29)
[2021-12-28 08:20] VITALS: BP 97/61
== END 2021-12-28 08:32 | disposition home or self-care (01) ==
LOC: M OPP 06:38
PROVIDERS: ATTEND Internal Medicine Gastroenterology
DX: Z80.0 Family history of malignant neoplasm of digestive organs (principal); Z85.048 Personal history of other malignant neoplasm of rectum, rectosigmoid junction, and anus; K63.89 Other specified diseases of intestine; R93.3 Abnormal findings on diagnostic imaging of other parts of digestive tract; Z87.891 Personal history of nicotine dependence; Z79.51 Long term (current) use of inhaled steroids; Z79.84 Long term (current) use of oral hypoglycemic drugs; Z79.899 Other long term (current) drug therapy; E11.9 Type 2 diabetes mellitus without complications; F32.9 Major depressive disorder, single episode, unspecified; F41.9 Anxiety disorder, unspecified; I27.20 Pulmonary hypertension, unspecified; J44.9 Chronic obstructive pulmonary disease, unspecified; B20 Human immunodeficiency virus [HIV] disease; N18.30 Chronic kidney disease, stage 3 unspecified; Z80.8 Family history of malignant neoplasm of other organs or systems

== ENCOUNTER → 2022-01-12 | Outpatient (CLI) | payer MEDICARE ==
[~2022-01-12] MED LIST changes: -NS 1,000 ML IV ONE
[2022-01-12 12:50] LABS: APPEARANCE, URINE MANUAL CLEAR (CLEAR); COLOR, URINE MANUAL LT YELLOW (YELLOW)
[2022-01-12 12:51] LABS: BILIRUBIN, URINE MANUAL NEGATIVE (NEGATIVE); BLOOD URINE MANUAL POSITIVE (NEGATIVE); GLUCOSE, URINE (UA) MANUAL NEGATIVE (NEGATIVE); KETONE, URINE MANUAL NEGATIVE (NEGATIVE); LEUKOCYTE ESTERASE, URINE MAN NEGATIVE (NEGATIVE); NITRITE, URINE MANUAL NEGATIVE (NEGATIVE); PROTEIN, URINE MANUAL TRACE mg/dL (NEGATIVE); SPECIFIC GRAVITY,URINE MANUAL 1.025 (1.002-1.035); UROBILINOGEN, URINE MANUAL NORMAL (NORMAL)
[2022-01-12 12:56] LABS: BASO # 0.1 10^3/uL (0.0-0.2); BASO % 0.6 % (0.0-1.0); EOS # 0.1 10^3/uL (0.0-0.5); EOS % 1.5 % (0.0-3.0); HEMATOCRIT 55.5 % (42.0-52.0); LYMPH % 11.9 % (24.0-44.0); MEAN CORPUSCULAR HEMOGLOBIN 35.2 pg (27.0-33.0); MEAN CORPUSCULAR HGB CONC 32.4 g/dl (32.0-36.5); MEAN CORPUSCULAR VOLUME 108.6 fl (80.0-96.0); MONO # 0.6 10^3/uL (0.0-0.8); MONO % 7.1 % (2.0-8.0); NEUTROPHILS # 6.3 10^3/uL (1.5-8.5); NEUTROPHILS % 78.6 % (36.0-66.0); PLATELET COUNT, AUTOMATED 251 10^3/uL (150-450); RED BLOOD COUNT 5.11 10^6/uL (4.30-6.10)
[2022-01-12 13:18] LABS: SQUAMOUS EPITHELIAL CELL URINE NONE SEEN /hpf (SMALL AMT)
[2022-01-12 13:19] LABS: BACTERIA, URINE NONE SEEN; HYALINE CAST, URINE NONE SEEN /lpf (0-1)
[2022-01-12 13:22] LABS: CREATININE,RANDOM URINE 100.8 MG/DL; TOTAL PROTEIN,RANDOM URINE 40.8 MG/DL (0.0-14.0)
[2022-01-12 13:59] LABS: ERYTHROCYTE SEDIMENTATION RATE 4 mm/hr (0-20)
[2022-01-12 16:06] LABS: COMPLEMENT C3 203.4 MG/DL (90.0-170.0)
[2022-01-15 09:47] LABS: DRVV SCREEN 60.5 SEC
[2022-01-15 09:50] LABS: PTT LUPUS TYPE ANTICOAG SCREEN 1.6 (0-1.2)
[2022-01-15 09:57] LABS: DRVV CONFIRM 42.7 SEC; LUPUS CONFIRM RATIO 1.1
[2022-01-15 10:00] LABS: NORMALIZED RATIO 1.45 (0.00-1.20)
[2022-01-18 18:07] LABS: HEXAGONAL PHASE PHOSPHOLIPID 3 sec (0-11)
== END ==
LOC: M RAD 11:39
PROVIDERS: ATTEND Internal Medicine
DX: M25.439 Effusion, unspecified wrist (principal); R76.8 Other specified abnormal immunological findings in serum; J84.9 Interstitial pulmonary disease, unspecified

== ENCOUNTER → 2022-01-25 | Outpatient (CLI) | payer MEDICARE ==
[2022-01-25 15:28] LABS: BASO # 0.1 10^3/uL (0.0-0.2); BASO % 0.8 % (0.0-1.0); EOS # 0.2 10^3/uL (0.0-0.5); EOS % 2.4 % (0.0-3.0); HEMOGLOBIN 17.1 g/dl (13.5-17.5); LYMPH # 1.1 10^3/uL (1.5-5.0); LYMPH % 13.8 % (24.0-44.0); MEAN CORPUSCULAR HEMOGLOBIN 35.2 pg (27.0-33.0); MEAN CORPUSCULAR HGB CONC 32.3 g/dl (32.0-36.5); MEAN CORPUSCULAR VOLUME 109.1 fl (80.0-96.0); MONO # 0.7 10^3/uL (0.0-0.8); MONO % 9.3 % (2.0-8.0); NEUTROPHILS # 5.6 10^3/uL (1.5-8.5); NEUTROPHILS % 73.4 % (36.0-66.0); PLATELET COUNT, AUTOMATED 230 10^3/uL (150-450); RED BLOOD COUNT 4.86 10^6/uL (4.30-6.10); WHITE BLOOD COUNT 7.6 10^3/uL (4.0-10.0)
[2022-01-25 15:42] LABS: TOTAL 25(OH) VITAMIN D 44.1 NG/ML (20.0-100.0)
[2022-01-25 15:45] LABS: ALBUMIN 3.3 G/DL (3.2-5.2); BILIRUBIN,TOTAL 0.4 MG/DL (0.3-1.2); CHOLESTEROL RISK RATIO 5.07 (<5); CREATININE FOR GFR 1.86 MG/DL (0.70-1.30); GLOMERULAR FILTRATION RATE 40.5 (>56); LDL CHOLESTEROL 90.6 MG/DL (<100); POTASSIUM SERUM 5.2 MMOL/L (3.5-5.1); TOTAL PROTEIN 6.9 G/DL (5.7-8.2)
[2022-01-25 17:55] LABS: HEMOGLOBIN A1c 6.1 % (4.0-6.0)
== END ==
LOC: M PLALAB 13:23
PROVIDERS: ATTEND Nurse Practitioner Family
DX: E11.9 Type 2 diabetes mellitus without complications (principal); E55.9 Vitamin D deficiency, unspecified; E78.00 Pure hypercholesterolemia, unspecified; Z79.899 Other long term (current) drug therapy

== ENCOUNTER → 2022-02-02 | Outpatient (CLI) | payer MEDICARE | LOC: M RAD 07:08 | PROVIDERS: ATTEND Nurse Practitioner | DX: K80.20 Calculus of gallbladder without cholecystitis without obstruction (principal); R16.1 Splenomegaly, not elsewhere classified ==

== ENCOUNTER → 2022-03-01 | Outpatient (CLI) | payer MEDICARE ==
[~2022-03-01] MED LIST changes: +SODI325T9 PO
== END ==
LOC: M RAD 08:10
PROVIDERS: ATTEND Internal Medicine Pulmonary Disease
DX: R91.8 Other nonspecific abnormal finding of lung field (principal); K80.20 Calculus of gallbladder without cholecystitis without obstruction

== ENCOUNTER → 2022-06-17 | Outpatient (CLI) | payer MEDICARE ==
[2022-06-17 18:06] LABS: ALBUMIN 3.2 G/DL (3.2-5.2); ALKALINE PHOSPHATASE 97 U/L (46-116); ALT/SGPT < 9 U/L (7.0-40); AST/SGOT 13 U/L (<34); BILIRUBIN,TOTAL 0.6 MG/DL (0.3-1.2); BLOOD UREA NITROGEN 24 MG/DL (9-23); CALCIUM LEVEL 8.9 MG/DL (8.5-10.1); CARBON DIOXIDE LEVEL 25 MMOL/L (20-31); CHLORIDE LEVEL 107 MMOL/L (98-107); CREATININE FOR GFR 1.74 MG/DL (0.70-1.30); GLOMERULAR FILTRATION RATE 43.7 (>56); GLUCOSE, FASTING 132 MG/DL (60-100); POTASSIUM SERUM 4.6 MMOL/L (3.5-5.1); SODIUM LEVEL 140 MMOL/L (136-145); TOTAL PROTEIN 6.8 G/DL (5.7-8.2)
[2022-06-17 18:07] LABS: BASO # 0.1 10^3/uL (0.0-0.2); EOS # 0.1 10^3/uL (0.0-0.5); EOS % 1.2 % (0.0-3.0); HEMATOCRIT 55.8 % (42.0-52.0); LYMPH # 0.8 10^3/uL (1.5-5.0); MEAN CORPUSCULAR HEMOGLOBIN 33.1 pg (27.0-33.0); MEAN CORPUSCULAR HGB CONC 32.3 g/dl (32.0-36.5); MEAN CORPUSCULAR VOLUME 102.6 fl (80.0-96.0); MONO # 0.4 10^3/uL (0.0-0.8); MONO % 7.4 % (2.0-8.0); NEUTROPHILS # 4.6 10^3/uL (1.5-8.5); NEUTROPHILS % 77.1 % (36.0-66.0); PLATELET COUNT, AUTOMATED 221 10^3/uL (150-450); RED BLOOD COUNT 5.44 10^6/uL (4.30-6.10); WHITE BLOOD COUNT 5.9 10^3/uL (4.0-10.0)
[2022-06-17 18:09] LABS: TOTAL 25(OH) VITAMIN D 40.9 NG/ML (20.0-100.0)
[2022-06-17 18:28] LABS: HEMOGLOBIN A1c 6.8 % (4.0-6.0)
== END ==
LOC: M PLALAB 14:47
PROVIDERS: ATTEND Nurse Practitioner Family
DX: E55.9 Vitamin D deficiency, unspecified (principal); E11.9 Type 2 diabetes mellitus without complications; I10 Essential (primary) hypertension

== ENCOUNTER → 2022-06-17 | Outpatient (CLI) | payer MEDICARE | LOC: M PLALAB 14:45 | PROVIDERS: ATTEND Internal Medicine | DX: R76.0 Raised antibody titer (principal); J84.9 Interstitial pulmonary disease, unspecified ==

== ENCOUNTER → 2022-06-17 | Outpatient (CLI) | payer MEDICARE ==
[2022-06-17 19:49] LABS: ALKALINE PHOSPHATASE 97 U/L (46-116); ALT/SGPT < 9 U/L (7.0-40); AST/SGOT 13 U/L (<34); BILIRUBIN,TOTAL 0.6 MG/DL (0.3-1.2); BLOOD UREA NITROGEN 24 MG/DL (9-23); CALCIUM LEVEL 8.9 MG/DL (8.5-10.1); CARBON DIOXIDE LEVEL 25 MMOL/L (20-31); CHLORIDE LEVEL 107 MMOL/L (98-107); CREATININE FOR GFR 1.74 MG/DL (0.70-1.30); GLOMERULAR FILTRATION RATE 43.7 (>56); GLUCOSE, FASTING 132 MG/DL (60-100); POTASSIUM SERUM 4.6 MMOL/L (3.5-5.1); SODIUM LEVEL 140 MMOL/L (136-145); TOTAL PROTEIN 6.8 G/DL (5.7-8.2)
[2022-06-17 19:50] LABS: ALBUMIN 3.2 G/DL (3.2-5.2)
[2022-06-21 17:07] LABS: %CD4 Pos Lymphs 30.7 % (30.8-58.5); ABS Basophils 0.1 x10E3/uL (0.0-0.2); ABS Eosinophils 0.1 x10E3/uL (0.0-0.4); ABS Lymphs 0.8 x10E3/uL (0.7-3.1); ABS Monocytes 0.4 x10E3/uL (0.1-0.9); ABS Neutophils 4.5 x10E3/uL (1.4-7.0); Abs CD4 Helper 246 /uL (359-1519); Abs CD8 Suppres 216 /uL (109-897); CD4/CD8 Ratio 1.14 (0.92-3.72); Eosinophils 1 % (Not Estab.); HCT 53.1 % (37.5-51.0); HGB 17.9 g/dL (13.0-17.7); HIV-1 RNA PCR QUANT 2 LC550285 <20 copies/mL (.); Immature Grans 0 % (Not Estab.); Lymphocytes 13 % (Not Estab.); MCH 33.6 pg (26.6-33.0); MCHC 33.7 g/dL (31.5-35.7); MCV 100 fL (79-97); Monocytes 7 % (Not Estab.); Neutrophils 78 % (Not Estab.); Platelets 225 x10E3/uL (150-450); RBC 5.33 x10E6/uL (4.14-5.80); RDW 14.4 % (11.6-15.4); WBC 5.9 x10E3/uL (3.4-10.8)
== END ==
LOC: M PLALAB 14:49
PROVIDERS: ATTEND Internal Medicine Infectious Disease
DX: B20 Human immunodeficiency virus [HIV] disease (principal); R76.0 Raised antibody titer; J84.9 Interstitial pulmonary disease, unspecified; E55.9 Vitamin D deficiency, unspecified; E11.9 Type 2 diabetes mellitus without complications; I10 Essential (primary) hypertension

== ENCOUNTER → 2022-06-29 | Outpatient (CLI) | payer MEDICARE | LOC: M RAD 14:28 | PROVIDERS: ATTEND Nurse Practitioner Family | DX: J44.9 Chronic obstructive pulmonary disease, unspecified (principal); R05.1 Acute cough; R09.3 Abnormal sputum ==

== ENCOUNTER → 2022-10-19 | Outpatient (CLI) | payer MEDICARE ==
[~2022-10-19] MED LIST changes: +LISI2.5T9; +WELLTAB40 PO
== END ==
LOC: M CARPUL 10:46
PROVIDERS: ATTEND Internal Medicine Pulmonary Disease
DX: I27.20 Pulmonary hypertension, unspecified (principal)

== ENCOUNTER → 2022-12-12 | Outpatient (CLI) | payer MEDICARE ==
[2022-12-13 08:43] LABS: CALCIUM LEVEL 9.1 MG/DL (8.4-10.2); CREATININE FOR GFR 1.7 MG/DL (0.7-1.5); GLOMERULAR FILTRATION RATE 44.8 (>56); POTASSIUM SERUM 4.6 MEQ/L (3.6-5.0)
[2022-12-13 08:44] LABS: ALBUMIN 3.6 G/DL (3.9-5.0); BILIRUBIN,TOTAL 2.3 MG/DL (0.2-1.3); TOTAL PROTEIN 6.6 G/DL (6.3-8.2)
== END ==
LOC: M PLALAB 14:34
PROVIDERS: ATTEND Internal Medicine Infectious Disease
DX: B20 Human immunodeficiency virus [HIV] disease (principal); R60.0 Localized edema

== ENCOUNTER → 2022-12-20 | Outpatient (CLI) | payer MEDICARE ==
[2022-12-20 11:54] LABS: CALCIUM LEVEL 9.1 MG/DL (8.5-10.1); CREATININE FOR GFR 1.96 MG/DL (0.70-1.30); POTASSIUM SERUM 4.3 MMOL/L (3.5-5.1)
[2022-12-22 05:07] LABS: % CD8 Pos Lymph 20.4 % (12.0-35.5); %CD4 Pos Lymphs 24.9 % (30.8-58.5); ABS Basophils 0.1 x10E3/uL (0.0-0.2); ABS Eosinophils 0.1 x10E3/uL (0.0-0.4); ABS Lymphs 0.6 x10E3/uL (0.7-3.1); ABS Monocytes 0.7 x10E3/uL (0.1-0.9); ABS Neutophils 4.2 x10E3/uL (1.4-7.0); Abs CD4 Helper 149 /uL (359-1519); Abs CD8 Suppres 122 /uL (109-897); CD4/CD8 Ratio 1.22 (0.92-3.72); Eosinophils 2 % (Not Estab.); HCT 49.1 % (37.5-51.0); HGB 15.8 g/dL (13.0-17.7); HIV-1 RNA PCR QUANT 2 LC550285 <20 copies/mL (.); Immature Grans 0 % (Not Estab.); Lymphocytes 11 % (Not Estab.); MCHC 32.2 g/dL (31.5-35.7); MCV 99 fL (79-97); Monocytes 12 % (Not Estab.); Neutrophils 74 % (Not Estab.); Platelets 187 x10E3/uL (150-450); RBC 4.94 x10E6/uL (4.14-5.80); RDW 16.1 % (11.6-15.4); WBC 5.7 x10E3/uL (3.4-10.8)
== END ==
LOC: M PLALAB 08:13
PROVIDERS: ATTEND Internal Medicine Infectious Disease
DX: R60.0 Localized edema (principal); B20 Human immunodeficiency virus [HIV] disease

== ENCOUNTER → 2023-01-10 | Outpatient (CLI) | payer MEDICARE ==
[~2023-01-10] MED LIST changes: +GABA-284 PO; +MORP1SOL4 PO; +NEUR300C PO; +SENN-186 PO
== END ==
LOC: M ONCM 09:12
PROVIDERS: ATTEND Dietitian, Registered
DX: I27.20 Pulmonary hypertension, unspecified (principal); J84.10 Pulmonary fibrosis, unspecified; Z68.34 Body mass index [BMI] 34.0-34.9, adult; Z71.3 Dietary counseling and surveillance

== ENCOUNTER → 2023-02-09 | Outpatient (CLI) | payer MEDICARE ==
[~2023-02-09] VITALS: Ht 180.3 cm; Wt 117.3 kg
[~2023-02-09] MED LIST changes: +VITA200028 PO
[2023-02-09 13:02] VITALS: BP 104/81; O2SAT 91
== END ==
LOC: M PAL 12:39
PROVIDERS: ATTEND Nurse Practitioner Adult Health
DX: I27.20 Pulmonary hypertension, unspecified (principal); J84.10 Pulmonary fibrosis, unspecified; R06.02 Shortness of breath; R06.09 Other forms of dyspnea; N18.30 Chronic kidney disease, stage 3 unspecified; B20 Human immunodeficiency virus [HIV] disease; R63.0 Anorexia; Z85.048 Personal history of other malignant neoplasm of rectum, rectosigmoid junction, and anus; Z51.5 Encounter for palliative care; Z66 Do not resuscitate; Z79.84 Long term (current) use of oral hypoglycemic drugs; Z79.891 Long term (current) use of opiate analgesic; Z79.899 Other long term (current) drug therapy; Z87.891 Personal history of nicotine dependence; Z92.3 Personal history of irradiation; Z92.21 Personal history of antineoplastic chemotherapy; Z99.81 Dependence on supplemental oxygen

== ENCOUNTER → 2023-03-01 | Outpatient (CLI) | payer MEDICARE ==
[2023-03-01 15:29] LABS: BASO # 0.1 10^3/uL (0.0-0.2); BASO % 1.4 % (0.0-1.0); EOS # 0.1 10^3/uL (0.0-0.5); EOS % 2.1 % (0.0-3.0); HEMATOCRIT 47.4 % (42.0-52.0); HEMOGLOBIN 14.7 g/dl (13.5-17.5); LYMPH # 0.9 10^3/uL (1.5-5.0); LYMPH % 15.2 % (24.0-44.0); MEAN CORPUSCULAR HEMOGLOBIN 32.2 pg (27.0-33.0); MEAN CORPUSCULAR VOLUME 103.9 fl (80.0-96.0); MONO # 0.7 10^3/uL (0.0-0.8); MONO % 12.7 % (2.0-8.0); NEUTROPHILS # 3.9 10^3/uL (1.5-8.5); NEUTROPHILS % 68.1 % (36.0-66.0); PLATELET COUNT, AUTOMATED 151 10^3/uL (150-450); RED BLOOD COUNT 4.56 10^6/uL (4.30-6.10); WHITE BLOOD COUNT 5.7 10^3/uL (4.0-10.0)
[2023-03-01 15:56] LABS: ALBUMIN 2.9 G/DL (3.2-5.2); ALKALINE PHOSPHATASE 106 U/L (46-116); ALT/SGPT < 9 U/L (7.0-40); AST/SGOT 13 U/L (<34); BILIRUBIN,TOTAL 1.6 MG/DL (0.3-1.2); BLOOD UREA NITROGEN 32 MG/DL (9-23); CALCIUM LEVEL 9.2 MG/DL (8.5-10.1); CARBON DIOXIDE LEVEL 29 MMOL/L (20-31); CHLORIDE LEVEL 106 MMOL/L (98-107); CHOLESTEROL LEVEL 113 MG/DL (<200); CHOLESTEROL RISK RATIO 5.97 (<5); CREATININE FOR GFR 2.15 MG/DL (0.70-1.30); GLOMERULAR FILTRATION RATE 34.1 (>56); GLUCOSE, FASTING 74 MG/DL (60-100); HDL CHOLESTEROL 18.9 MG/DL (>40); LDL CHOLESTEROL 73.3 MG/DL (<100); NON-HDL-C 94.1 MG/DL; POTASSIUM SERUM 4.1 MMOL/L (3.5-5.1); SODIUM LEVEL 144 MMOL/L (136-145); TOTAL 25(OH) VITAMIN D 64.4 NG/ML (20.0-100.0); TOTAL PROTEIN 6.4 G/DL (5.7-8.2); TRIGLYCERIDES LEVEL 104 MG/DL (<150)
[2023-03-01 15:57] LABS: FREE T4 0.84 NG/DL (0.89-1.76)
[2023-03-01 15:58] LABS: HEMOGLOBIN A1c 6.5 % (4.0-6.0); VITAMIN B12 LEVEL 530 PG/ML (211-911)
== END ==
LOC: M PLALAB 11:24
PROVIDERS: ATTEND Nurse Practitioner Family
DX: E78.00 Pure hypercholesterolemia, unspecified (principal); G62.9 Polyneuropathy, unspecified; E11.9 Type 2 diabetes mellitus without complications; E55.9 Vitamin D deficiency, unspecified

== ENCOUNTER → 2023-03-23 | Outpatient (CLI) | payer MEDICARE, OTHER ==
[~2023-03-23] VITALS: Ht 180.3 cm; Wt 118.5 kg
[~2023-03-23] MED LIST changes: +ALLO100T PO
[2023-03-23 13:04] VITALS: BP 105/72; O2SAT 89
[2023-03-23 13:09] VITALS: O2SAT 91
== END ==
LOC: M PAL 12:34
PROVIDERS: ATTEND Nurse Practitioner Adult Health
DX: I27.20 Pulmonary hypertension, unspecified (principal); J84.10 Pulmonary fibrosis, unspecified; R06.02 Shortness of breath; R06.09 Other forms of dyspnea; N18.30 Chronic kidney disease, stage 3 unspecified; B20 Human immunodeficiency virus [HIV] disease; R63.0 Anorexia; Z85.048 Personal history of other malignant neoplasm of rectum, rectosigmoid junction, and anus; Z51.5 Encounter for palliative care; Z66 Do not resuscitate; Z79.84 Long term (current) use of oral hypoglycemic drugs; Z79.891 Long term (current) use of opiate analgesic; Z79.899 Other long term (current) drug therapy; Z87.891 Personal history of nicotine dependence; Z92.3 Personal history of irradiation; Z92.21 Personal history of antineoplastic chemotherapy; Z99.81 Dependence on supplemental oxygen

== ENCOUNTER → 2023-03-27 | Outpatient (CLI) | payer MEDICARE | LOC: M RAD 09:03 | PROVIDERS: ATTEND Internal Medicine Nephrology | DX: R18.8 Other ascites (principal) ==

== ENCOUNTER → 2023-03-27 | Outpatient (CLI) | payer MEDICARE, MEDICAID | LOC: M RAD 09:08 | PROVIDERS: ATTEND Internal Medicine Pulmonary Disease | DX: J84.10 Pulmonary fibrosis, unspecified (principal) ==

== ENCOUNTER → 2023-05-15 | Outpatient (CLI) | payer MEDICARE, OTHER ==
[~2023-05-15] VITALS: Ht 180.3 cm; Wt 116.3 kg
[~2023-05-15] MED LIST changes: +FURO80TA2 PO
[2023-05-15 14:06] VITALS: BP 97/65; O2SAT 94
== END ==
LOC: M PAL 13:13
PROVIDERS: ATTEND Nurse Practitioner Adult Health
DX: I27.20 Pulmonary hypertension, unspecified (principal); J84.10 Pulmonary fibrosis, unspecified; R06.02 Shortness of breath; R06.09 Other forms of dyspnea; N18.30 Chronic kidney disease, stage 3 unspecified; B20 Human immunodeficiency virus [HIV] disease; R63.0 Anorexia; D75.1 Secondary polycythemia; Z85.048 Personal history of other malignant neoplasm of rectum, rectosigmoid junction, and anus; Z51.5 Encounter for palliative care; Z66 Do not resuscitate; Z79.84 Long term (current) use of oral hypoglycemic drugs; Z79.891 Long term (current) use of opiate analgesic; Z79.899 Other long term (current) drug therapy; Z87.891 Personal history of nicotine dependence; Z92.3 Personal history of irradiation; Z92.21 Personal history of antineoplastic chemotherapy; Z99.81 Dependence on supplemental oxygen

== ENCOUNTER 2023-07-27 09:48 | Inpatient (IN) | payer MEDICARE ==
[~2023-07-27] VITALS: Ht 180.3 cm; Wt 124.3 kg
[~2023-07-27 09:48] MED LIST changes: -GABA-282 PO; -MORP10SO2 PO; -QUET50TA4 PO
[2023-07-27 10:51] LABS: VENOUS BASE EXCESS -3.4 (-2.0-2.0); VENOUS HCO3 18.4 MMOL/L (23.0-27.0); VENOUS O2 SATURATION 98.6 % (60.0-80.0); VENOUS PARTIAL PRESSURE CO2 26.9 mmHg (38.0-50.0); VENOUS PARTIAL PRESSURE O2 112.9 mmHg (30.0-50.0); VENOUS PH 7.454 UNITS (7.330-7.430); VENOUS STANDARD HCO3 21.7 MMOL/L; VENOUS TOTAL CO2 19.3 MMOL/L (24.0-28.0)
[2023-07-27 10:58] LABS: BASO # 0.1 10^3/uL (0.0-0.2); BASO % 1.1 % (0.0-1.0); EOS # 0.1 10^3/uL (0.0-0.5); EOS % 1.7 % (0.0-3.0); HEMATOCRIT 51.4 % (42.0-52.0); HEMOGLOBIN 16.9 g/dl (13.5-17.5); LYMPH # 0.6 10^3/uL (1.5-5.0); LYMPH % 9.1 % (24.0-44.0); MEAN CORPUSCULAR HEMOGLOBIN 33.7 pg (27.0-33.0); MEAN CORPUSCULAR HGB CONC 32.9 g/dl (32.0-36.5); MEAN CORPUSCULAR VOLUME 102.4 fl (80.0-96.0); MONO # 0.5 10^3/uL (0.0-0.8); MONO % 8.3 % (2.0-8.0); NEUTROPHILS # 5.2 10^3/uL (1.5-8.5); NEUTROPHILS % 79.3 % (36.0-66.0); PLATELET COUNT, AUTOMATED 129 10^3/uL (150-450); RED BLOOD COUNT 5.02 10^6/uL (4.30-6.10); WHITE BLOOD COUNT 6.5 10^3/uL (4.0-10.0)
[2023-07-27 11:55] LABS: ALBUMIN 3.1 G/DL (3.2-5.2); BILIRUBIN,DIRECT 2.5 MG/DL (<0.4); BILIRUBIN,TOTAL 3.5 MG/DL (0.3-1.2); CALCIUM LEVEL 9.1 MG/DL (8.5-10.1); CREATININE FOR GFR 2.51 MG/DL (0.70-1.30); GLOMERULAR FILTRATION RATE 28.6 (>56); POTASSIUM SERUM 2.9 MMOL/L (3.5-5.1); TOTAL PROTEIN 7.3 G/DL (5.7-8.2)
[2023-07-27 12:12] LABS: ABG BASE EXCESS 0.5 (-2.0-2.0); ABG HCO3 22.1 MMOL/L (22.0-26.0); ABG O2 SATURATION 91.9 % (95.0-99.0); ABG PARTIAL PRESSURE CO2 28.3 mmHg (35.0-45.0); ABG PARTIAL PRESSURE O2 61.1 mmHg (75.0-100.0); ABG STANDARD HCO3 24.8 MMOL/L. (22.0-26.0); ABG TOTAL CO2 22.9 MMOL/L (22.0-29.0)
[2023-07-27] MEDS: KCL 10MEQ/100ML SWI (KRUN) 10 MEQ in IV 1 EA IV ONE (14:01)
[2023-07-27] MEDS ORDERED: ACETAMINOPHEN TAB 650MG DOSE (2X325MG) PO PRN (16:40)
[2023-07-27] MEDS ORDERED: DEXTROSE 50% 50ML SYRINGE IV PRN (16:40)
[2023-07-27] MEDS ORDERED: GLUCAGON INJ 1MG VIAL SC PRN (16:40)
[2023-07-27] MEDS ORDERED: GLUCOSE 4 GM CHEW PO PRN (16:40)
[2023-07-27] MEDS ORDERED: SENOKOT S TAB PO PRN (16:50)
[2023-07-27] MEDS: INSULIN LISPRO (NovoLOG) PER UNIT SC SCH ×2 (17:30→21:00)
[2023-07-27] MEDS: KCL 10MEQ/100ML SWI (KRUN) 10 MEQ in IV 1 EA IV SCH (18:30)
[2023-07-27] MEDS ORDERED: MORP10SO2 PO (20:47)
[2023-07-27] MEDS ORDERED: QUET50TA4 PO (20:47)
[2023-07-27] MEDS ORDERED: SODI325T9 PO (20:47)
[2023-07-27] MEDS ORDERED: GABA-284 PO (20:47)
[2023-07-27] MEDS ORDERED: ALLO100T PO (20:47)
[2023-07-27] MEDS ORDERED: GABA-282 PO (20:47)
[2023-07-27] MEDS ORDERED: HOME MED LIST COMPLETE! XX SCH (20:50)
[2023-07-27] MEDS ORDERED: FUROSEMIDE 100MG/10ML VIAL IV SCH (21:00)
[2023-07-27 21:17] VITALS: BP 112/74; TEMP 97.3; O2SAT 94
[2023-07-27] MEDS: GABAPENTIN 400MG CAP PO SCH (23:17)
[2023-07-27] MEDS: QUEtiapine FUMARATE 50MG TAB PO SCH (23:18)
[2023-07-27] MEDS: POTASSIUM CHLORIDE 10MEQ SR TABLET PO SCH (23:18)
[2023-07-27] MEDS: FUROSEMIDE 100MG/10ML VIAL IV SCH (23:18)
[2023-07-28] VITALS (7 sets, daily range): BP systolic 88–108; BP diastolic 57–80; TEMP 96.6–97.4; O2SAT 90–94
[2023-07-28 04:51] LABS: HEMATOCRIT 47.1 % (42.0-52.0); HEMOGLOBIN 15.3 g/dl (13.5-17.5); MEAN CORPUSCULAR HEMOGLOBIN 33.6 pg (27.0-33.0); MEAN CORPUSCULAR HGB CONC 32.5 g/dl (32.0-36.5); MEAN CORPUSCULAR VOLUME 103.5 fl (80.0-96.0); PLATELET COUNT, AUTOMATED 119 10^3/uL (150-450); RED BLOOD COUNT 4.55 10^6/uL (4.30-6.10); WHITE BLOOD COUNT 4.7 10^3/uL (4.0-10.0)
[2023-07-28] MEDS: HEPARIN SOD (PORCINE) 5000UNITS/ML 1ML VIAL/SYRINGE SC SCH (05:30)
[2023-07-28 05:56] LABS: ALBUMIN 2.8 G/DL (3.2-5.2); BILIRUBIN,TOTAL 3.8 MG/DL (0.3-1.2); CREATININE FOR GFR 2.41 MG/DL (0.70-1.30); GLOMERULAR FILTRATION RATE 29.9 (>56); MAGNESIUM LEVEL 2.2 MG/DL (1.8-2.4); POTASSIUM SERUM 3.5 MMOL/L (3.5-5.1)
[2023-07-28] MEDS: allopurinoL 100 MG TAB PO SCH (10:41)
[2023-07-29] VITALS (31 sets, daily range): BP systolic 89–133; BP diastolic 63–83; TEMP 96.3–98.6; O2SAT 89–100
[2023-07-29 08:27] LABS: BASO # 0.1 10^3/uL (0.0-0.2); BASO % 1.1 % (0.0-1.0); EOS # 0.1 10^3/uL (0.0-0.5); EOS % 2.2 % (0.0-3.0); HEMATOCRIT 48.6 % (42.0-52.0); HEMOGLOBIN 15.4 g/dl (13.5-17.5); LYMPH # 0.6 10^3/uL (1.5-5.0); MEAN CORPUSCULAR HEMOGLOBIN 32.8 pg (27.0-33.0); MEAN CORPUSCULAR HGB CONC 31.7 g/dl (32.0-36.5); MEAN CORPUSCULAR VOLUME 103.4 fl (80.0-96.0); MONO # 0.5 10^3/uL (0.0-0.8); NEUTROPHILS # 4.2 10^3/uL (1.5-8.5); NEUTROPHILS % 76.3 % (36.0-66.0); PLATELET COUNT, AUTOMATED 124 10^3/uL (150-450); WHITE BLOOD COUNT 5.5 10^3/uL (4.0-10.0)
[2023-07-29] MEDS: FUROSEMIDE injection 250 MG in D5W 225 ML IV SCH (11:47)
[2023-07-29] MEDS ORDERED: FUROSEMIDE injection 250 MG in D5W 225 ML IV SCH (12:00)
[2023-07-29] MEDS: IPRATROPIUM 0.5MG/ALBUTEROL 2.5MG INH SOL UD 3ML (DUONEB) NEB PRN (15:34)
[2023-07-29 16:44] LABS: ALBUMIN 2.7 G/DL (3.2-5.2); BILIRUBIN,TOTAL 3.5 MG/DL (0.3-1.2); CALCIUM LEVEL 8.7 MG/DL (8.5-10.1); CREATININE FOR GFR 2.16 MG/DL (0.70-1.30); TOTAL PROTEIN 6.7 G/DL (5.7-8.2)
[2023-07-29] MEDS: VASOPRESSIN INJ 20 UNITS in NS 499 ML IV SCH (18:23)
[2023-07-30] VITALS (30 sets, daily range): BP systolic 73–120; BP diastolic 50–85; TEMP 96.3–98.2; O2SAT 88–99
[2023-07-30 06:09] LABS: CALCIUM LEVEL 8.1 MG/DL (8.5-10.1); CREATININE FOR GFR 1.96 MG/DL (0.70-1.30); POTASSIUM SERUM 4.2 MMOL/L (3.5-5.1)
[2023-07-30] MEDS: MORPHINE 10MG/0.5ML ORAL CONCENTRATE SOLUTION U/D PO PRN (12:27)
[2023-07-30] MEDS: LORazepam 1 MG TAB PO PRN (16:54)
[2023-07-30] MEDS: TORSEMIDE 100 MG TAB PO SCH (17:27)
[2023-07-31] MEDS ORDERED: TRAN1DIS4 TOP (08:13)
[2023-07-31] MEDS ORDERED: ATIV1TAB7 PO (08:13)
[2023-07-31] MEDS ORDERED: TORS100T PO (08:13)
[2023-07-31] MEDS: ALBUTEROL SULFATE 2.5MG/0.5ML INH NEB SOLN NEB PRN (11:15)
[2023-07-31] MEDS: LORazepam 1 MG TAB PO PRN (22:56)
[2023-08-01] MEDS ORDERED: BISACODYL 10MG SUPP PR PRN (00:25)
[2023-08-01] MEDS ORDERED: ONDANSETRON 4MG 2ML VIAL IV PRN (00:25)
[2023-08-01] MEDS ORDERED: ACETAMINOPHEN 650MG SUPP PR PRN (00:25)
[2023-08-01] MEDS ORDERED: ONDANSETRON 4MG ORAL DISINTEGRATING TAB PO PRN (00:25)
[2023-08-01] MEDS: FUROSEMIDE 40MG/4ML VIAL IV ONE (00:57)
[2023-08-01] MEDS: MORPHINE 2 MG/ML 1ML VIAL IV PRN (00:58)
[2023-08-01] MEDS: LORazepam 2 MG/ML 1ML VIAL IV PRN (00:59)
== END 2023-08-01 03:03 | disposition expired | DRG 314 ==
LOC: M ED 09:48 → M ED INP 16:37 → M ICU 20:40 → M ED INP 20:53 → M PCU 21:10 → M ICU 07-29 15:48 → M MSPAV 07-30 18:07
PROVIDERS: ADMIT Hospitalist; ATTEND Hospitalist
PROC: B246ZZZ Ultrasonography of Right and Left Heart (ICD-10-PCS; principal; 2023-07-28)
PROC: 06HM33Z Insertion of Infusion Device into Right Femoral Vein, Percutaneous Approach (ICD-10-PCS; 2023-07-29)
PROC: 04HY32Z Insertion of Monitoring Device into Lower Artery, Percutaneous Approach (ICD-10-PCS; 2023-07-29)
DX: I27.20 Pulmonary hypertension, unspecified (principal); J96.21 Acute and chronic respiratory failure with hypoxia; B20 Human immunodeficiency virus [HIV] disease; C64.9 Malignant neoplasm of unspecified kidney, except renal pelvis; N18.4 Chronic kidney disease, stage 4 (severe); E87.3 Alkalosis; N17.9 Acute kidney failure, unspecified; C21.0 Malignant neoplasm of anus, unspecified; I13.0 Hypertensive heart and chronic kidney disease with heart failure and stage 1 through stage 4 chronic kidney disease, or unspecified chronic kidney disease; R57.8 Other shock; J84.10 Pulmonary fibrosis, unspecified; E87.6 Hypokalemia; Z51.5 Encounter for palliative care; Z66 Do not resuscitate; G47.33 Obstructive sleep apnea (adult) (pediatric); E11.22 Type 2 diabetes mellitus with diabetic chronic kidney disease; D64.9 Anemia, unspecified; D69.6 Thrombocytopenia, unspecified; I50.813 Acute on chronic right heart failure; I36.1 Nonrheumatic tricuspid (valve) insufficiency; J43.9 Emphysema, unspecified; Z79.84 Long term (current) use of oral hypoglycemic drugs; Z79.899 Other long term (current) drug therapy; Z79.69 Long term (current) use of other immunomodulators and immunosuppressants; Z99.81 Dependence on supplemental oxygen

== ENCOUNTER → 2023-07-27 | Outpatient (CLI) | payer MEDICARE ==
[~2023-07-27] VITALS: Ht 180.3 cm; Wt 118.0 kg
[~2023-07-27] MED LIST changes: -ALBU8.5H; +ALBU8.5H INH; +BUPR-597 PO; -BUPR300T92 PO; +GABA-282 PO; +MORP10SO2 PO; +QUET50TA4 PO; -TYVA0.6S3; +TYVA0.6S3 INH
[2023-07-27 08:52] VITALS: BP 118/82; O2SAT 86
== END ==
LOC: M PAL 08:12
PROVIDERS: ATTEND Nurse Practitioner Adult Health
DX: R09.02 Hypoxemia (principal); R55 Syncope and collapse; I27.20 Pulmonary hypertension, unspecified; J84.10 Pulmonary fibrosis, unspecified; I50.810 Right heart failure, unspecified; N18.30 Chronic kidney disease, stage 3 unspecified; R06.02 Shortness of breath; R06.09 Other forms of dyspnea; B20 Human immunodeficiency virus [HIV] disease; R63.0 Anorexia; Z85.048 Personal history of other malignant neoplasm of rectum, rectosigmoid junction, and anus; Z51.5 Encounter for palliative care; Z66 Do not resuscitate; Z74.2 Need for assistance at home and no other household member able to render care; Z79.84 Long term (current) use of oral hypoglycemic drugs; Z79.891 Long term (current) use of opiate analgesic; Z79.899 Other long term (current) drug therapy; Z87.891 Personal history of nicotine dependence; Z92.3 Personal history of irradiation; Z92.21 Personal history of antineoplastic chemotherapy; Z99.81 Dependence on supplemental oxygen